=== PATIENT | female | born 1940 ===

== ENCOUNTER 2018-08-07 10:26 | Outpatient (CLI) | payer MEDICARE, OTHER | END 2018-08-07 10:27 | disposition home or self-care (01) | LOC: C.MAMMO 10:26 | DX: Z12.31 Encounter for screening mammogram for malignant neoplasm of breast (principal) ==

== ENCOUNTER 2018-08-22 10:05 | Outpatient (CLI) | payer MEDICARE, OTHER | END 2018-08-22 10:06 | disposition home or self-care (01) | LOC: C.MAMMO 10:05 | DX: R92.8 Other abnormal and inconclusive findings on diagnostic imaging of breast (principal) ==

== ENCOUNTER → 2018-10-09 | Outpatient (CLI) | payer MEDICARE, OTHER | END | disposition home or self-care (01) | LOC: C.SPRAD 09:46 | DX: R92.8 Other abnormal and inconclusive findings on diagnostic imaging of breast (principal) ==

== ENCOUNTER 2018-10-16 09:39 | Outpatient (CLI) | payer MEDICARE, OTHER | END 2018-10-16 09:40 | disposition home or self-care (01) | LOC: C.PAT 09:39 | DX: H25.013 Cortical age-related cataract, bilateral (principal) ==

== ENCOUNTER 2018-10-24 06:04 | Day surgery (SDC) | payer MEDICARE, OTHER ==
[2018-10-16 09:51] VITALS: BMI 27.8
[~2018-10-24 06:04] MED LIST: Ciprofloxacin 0.3% OPTH SOLN OS SCH; Cyclopentolate 1% Opth (2 ml) OS SCH; Ketorolac Tromethamine 0.5% Opth Soln (3 ml) OS SCH; Lactated Ringer's 500 ML IV ONE; Phenylephrine 2.5% Opht Soln OS SCH; Tropicamide 1% Opht SOLUTION OS SCH
[2018-10-24] MEDS ORDERED: Lactated Ringer's 500 ML IV ONE (07:00)
[2018-10-24] MEDS ORDERED: Hyaluronidase Human, Recombi 150 U/ML VIAL ONE (07:39)
[2018-10-24] MEDS ORDERED: Povidone Iodine Ophthalmic 5% Soln ONE (07:39)
[2018-10-24] MEDS ORDERED: Tobramycin/Dexamethasone OPHT OINT ONE (07:39)
[2018-10-24] MEDS ORDERED: Chondroitin/Hyaluronate Opth Syringe KIT (0.55 ml-0.5 ml) IO ONE (07:39)
[2018-10-24] MEDS ORDERED: Carbachol 0.01% IO ONE (07:39)
[2018-10-24] MEDS ORDERED: Lidocaine 2% MPF (5 ml) Inj ONE ×2 (07:40→07:44)
[2018-10-24] MEDS ORDERED: Midazolam 2 MG/2 ML VIAL ONE (09:00)
[2018-10-24 09:44] VITALS: RESP 15
[2018-10-24 10:12] VITALS: BP 152/78; PULSE 70; TEMP 97.9; O2SAT 99
--- NOTE | 2018-10-24 18:51 | OP ---
PROCEDURE DATE: 10/24/2018 PREOPERATIVE DIAGNOSIS: Mature cataract, left eye. POSTOPERATIVE DIAGNOSIS: Mature cataract, left eye. OPERATIVE PROCEDURE: Phacoemulsification, left eye, insertion of posterior chamber lens implant. SURGEON: Dino Rios MD ANESTHESIA: Local with IV sedation. DESCRIPTION OF PROCEDURE: The patient was brought into the operating room, placed in supine position, prepped and draped in the usual fashion for ophthalmic surgery. Lid speculum was inserted, lids and exposing globe. A side-port incision was made superiorly and inferiorly with a disposable sharp blade. Anterior chamber was filled with Viscoat. A near clear corneal incision was made temporally with a 2.75-mm keratome. Capsulorrhexis was then performed with Utrata forceps. Hydrodissection carried out with balanced salt solution. Nucleus was phacoemulsified. Remaining cortical fragments were removed with a split irrigation and aspiration system. The capsular sac was filled with Provisc. A posterior chamber lens was then injected into the capsular sac and rotated into horizontal position. Provisc was aspirated out of the anterior chamber. The pupil was constricted with Miochol. The wound was found to be watertight. Topical Betadine, Timoptic, and TobraDex ointment and pressure patch were applied. The patient tolerated the procedure well. Dino Rios MD
== END 2018-10-24 10:17 | disposition home or self-care (01) ==
LOC: C.SDS 06:04
PROVIDERS: ATTEND Ophthalmology
DX: H26.9 Unspecified cataract (principal)
CPT/HCPCS: 66984; J2250; J3010; J3470; J7120; V2632